=== PATIENT | female | born 1945 | race Caucasian/White ===

== ENCOUNTER → 2018-07-14 13:28 | Outpatient (CLI) | payer MEDICARE, SELFPAY ==
--- NOTE | 2018-07-14 13:32 | STE_ITS ---
Reason For Study: CHEST PAIN Stress Results Protocol: Dobutamine Protocol Maximum Predicted HR: 148 bpm Target HR: 126 bpm % Maximum Predicted HR: 95 % DurationHeart Rate Stage (mm:ss) (bpm) BP Comment BASELINE 62 148/86 STAGE 1 3:00 98 150/70 STAGE 2 3:00 113 164/70 STAGE 3 3:00 141 168/78INCREASED SOB, NO CHEST PAIN RECOVERY 77 142/70 Stress Duration: 9:00 mm:ss Maximum Stress HR: 141 bpm Baseline Echocardiogram Findings The estimated ejection fraction is 65 %. Stress Echo Wall motion Data Resting WM Intermediate WM Stress WM Resting Wall Motion Wall Motion Stress No regional wall motion No regional wall motion abnormalities noted. abnormalities noted. EKG Data Normal intervals are noted. The patient exercised according to the regular Charles protocol for a total duration of 9:00. The maximum heart rate attained was 146 beats per minute. This was 98% of maximum predicted heart rate. The patient exercised into stage 4 of the Charles protocol. During stress, there were no ST or T wave changes noted to suggest ischemia. No clinical angina was noted. Interpretation Summary The estimated ejection fraction is 65 %. Normal, adequate, treadmill echocardiogram. Negative for ischemia by EKG and echocardiographic criteria. No anginal symptoms noted. Rare PVCs and ventricular couplets noted. Final LVEF is 75%. Appropriate blood pressure response to exercise. Average exercise capacity for age. Test terminated due to the attainment of target heart rate and dyspnea. No complications. Ordering Physician: Vish^Jatinder^^^ Referring Physician: Jatinder Wahl Performed By: John Senior RCS
== END ==
PROVIDERS: Family Provider Family Medicine; PCP Family Medicine; Referring Provider Family Medicine; Visit Provider Family Medicine
DX: R07.89 Other chest pain (principal)
CPT/HCPCS: 93017; 93350